=== PATIENT | male | born 2000 | race Two or more races ===

== ENCOUNTER 2023-10-14 21:31 | Emergency (ER) | payer OTHER ==
[2023-10-14 21:39] VITALS: BP 125/82; PULSE 91; RESP 18; TEMP 97.9; BMI 27.3
[2023-10-14 22:50] LABS: BASO % 0.6 % (0-2.0); EOS % 2.6 % (0-4.5); HEMATOCRIT 47.5 % (35.4-49); HEMOGLOBIN 15.9 GM/dL (11.7-16.9); LYMPH % 32.7 % (8-40); MCH 31.7 pg (25.7-33.7); MCHC 33.4 g/dl (32.0-35.9); MEAN CELL VOLUME 94.8 fl (80-96); MEAN PLT VOLUME 7.5 fl (7.5-11.1); MONO % 8.3 % (3.8-10.2); NEUT % 55.8 % (42.8-82.8); PLATELET COUNT 264 10^3/uL (134-434); RBC 5.01 M/mm3 (4.00-5.60); RDW 13.1 % (11.9-15.9); WHITE BLOOD COUNT 8.7 K/mm3 (4.0-10.0)
[2023-10-14 23:09] LABS: CHLORIDE 105 mmol/L (98-107); POTASSIUM 4.1 mmol/L (3.5-5.1); SODIUM 138 mmol/L (136-145)
[2023-10-14 23:12] LABS: CALCIUM 9.7 mg/dL (8.5-10.1)
[2023-10-14 23:13] LABS: ANION GAP 5 mmol/L (4-13); CO2 28 mmol/L (21-32); GLUCOSE,RANDOM 101 mg/dL (74-106)
[2023-10-14 23:16] LABS: CREATININE 1.3 mg/dL (0.55-1.3); SGOT/AST 29 U/L (15-37); SGPT/ALT 42 U/L (13-61)
[2023-10-14 23:17] LABS: BILIRUBIN,TOTAL 0.5 mg/dL (0.2-1); TOT PROT 7.6 g/dl (6.4-8.2)
[2023-10-14 23:18] LABS: ALK PHOS 44 U/L (45-117)
[2023-10-14 23:21] LABS: COCAINE, UR NEGATIVE (NEGATIVE); METHADONE, UR NEGATIVE (NEGATIVE); OPIATES, URI NEGATIVE (NEGATIVE); PHENCYCLIDINE,URINE NEGATIVE (NEGATIVE); URINE AMPHETAMINES NEGATIVE (NEGATIVE); URINE BARBITURATES NEGATIVE (NEGATIVE); URINE BENZODIAZEPINES NEGATIVE (NEGATIVE)
[2023-10-14 23:59] LABS: PH,URINE 5.5 (5.0-8.0); URINE APPEARANCE CLEAR; URINE BILIRUBIN NEGATIVE (NEGATIVE); URINE COLOR YELLOW; URINE GLUCOSE (UA) NEGATIVE (NEGATIVE); URINE KETONE NEGATIVE (NEGATIVE); URINE LEUK ESTERASE NEGATIVE (NEGATIVE); URINE NITRITE NEGATIVE (NEGATIVE); URINE PROTEIN NEGATIVE (NEGATIVE); URINE UROBILINOGEN 0.2 mg/dL (0.2-1.0)
[2023-10-15] MEDS ORDERED: MECLIZINE HCL 25 MG TABLET (FP) ONE ×2 (00:16→00:19)
[2023-10-15] MEDS: MECLIZINE HCL 25 MG TABLET (FP) PO ONE ×2 (00:24→00:27)
[2023-10-15 00:34] LABS: PHOSPHOROUS 4.2 mg/dL (2.5-4.9)
== END 2023-10-15 01:08 | disposition home or self-care (01) ==
LOC: JER 21:31
DX: R42 Dizziness and giddiness (principal); R51.9 Headache, unspecified; R20.0 Anesthesia of skin; R20.2 Paresthesia of skin; Z20.822 Contact with and (suspected) exposure to COVID-19
CPT/HCPCS: 0241U-QW; 36415; 70450-TC; 80053; 80307; 81003; 82010; 82962; 83735; 84100; 84484; 85025; 87086; 93005; 93010; 99285-25

== ENCOUNTER 2023-10-27 03:13 | Emergency (ER) | payer SELFPAY ==
[2023-10-27 03:18] VITALS: BP 126/88; PULSE 75; RESP 20; TEMP 97.8; BMI 27.3
[2023-10-27] MEDS ORDERED: AMOX TR/POT CLAV 875MG/125MG TABLETS (FP) ONE (04:02)
[2023-10-27] MEDS: AMOX TR/POT CLAV 875MG/125MG TABLETS (FP) PO ONE (04:05)
== END 2023-10-27 04:14 | disposition home or self-care (01) ==
LOC: JER 03:13
DX: J32.9 Chronic sinusitis, unspecified (principal); R42 Dizziness and giddiness; R51.9 Headache, unspecified
CPT/HCPCS: 99283-25

== ENCOUNTER 2023-11-30 19:24 | Emergency (ER) | payer SELFPAY ==
[2023-11-30 19:32] VITALS: BP 120/81; PULSE 85; RESP 18; TEMP 98.3; BMI 29.7
[2023-11-30] MEDS ORDERED: METOCLOPRAMIDE HCL INJECTION 10 MG/2 ML VIAL ONE (20:20)
[2023-11-30] MEDS ORDERED: KETOROLAC TROMETHAMINE 30 MG/1 ML VIAL ONE (20:20)
[2023-11-30] MEDS: KETOROLAC TROMETHAMINE 30 MG/1 ML VIAL IVPUSH ONE (20:25)
[2023-11-30] MEDS: SODIUM CHLORIDE 0.9% 500 ML INFUS.BAG IV ONE (20:25)
[2023-11-30] MEDS: METOCLOPRAMIDE HCL INJECTION 10 MG/2 ML VIAL IVPUSH ONE (20:25)
[2023-11-30 20:35] LABS: PH,URINE 5.5 (5.0-8.0); URINE APPEARANCE Clear; URINE BILIRUBIN Negative (NEGATIVE); URINE COLOR Yellow; URINE GLUCOSE (UA) Negative (NEGATIVE); URINE KETONE Negative (NEGATIVE); URINE LEUK ESTERASE Negative (NEGATIVE); URINE NITRITE Negative (NEGATIVE); URINE PROTEIN Negative (NEGATIVE); URINE UROBILINOGEN 0.2 mg/dL (0.2-1.0)
[2023-11-30 20:37] LABS: BASO % 0.6 % (0-2.0); EOS % 1.2 % (0-4.5); HEMATOCRIT 46.9 % (35.4-49); LYMPH % 36.3 % (8-40); MCH 32.1 pg (25.7-33.7); MCHC 34.1 g/dl (32.0-35.9); MEAN CELL VOLUME 94.1 fl (80-96); MEAN PLT VOLUME 7.7 fl (7.5-11.1); MONO % 8.4 % (3.8-10.2); NEUT % 53.5 % (42.8-82.8); PLATELET COUNT 262 10^3/uL (134-434); RBC 4.99 M/mm3 (4.00-5.60); RDW 13.5 % (11.9-15.9); WHITE BLOOD COUNT 7.8 K/mm3 (4.0-10.0)
[2023-11-30 20:54] LABS: POTASSIUM 4.4 mmol/L (3.5-5.1)
[2023-11-30 20:55] LABS: ALBUMIN 4.3 g/dl (3.4-5.0); CALCIUM 9.5 mg/dL (8.5-10.1)
[2023-11-30 20:56] LABS: BLOOD UREA NITROGEN 23.1 mg/dL (7-18)
[2023-11-30 20:59] LABS: CREATININE 1.4 mg/dL (0.55-1.3)
[2023-11-30 21:01] LABS: BILIRUBIN,TOTAL 0.4 mg/dL (0.2-1)
== END 2023-11-30 22:07 | disposition home or self-care (01) ==
LOC: JERFT 19:24
PROC: 3E0333Z Introduction of Anti-inflammatory into Peripheral Vein, Percutaneous Approach (ICD-10-PCS; principal; 2023-11-30)
PROC: 3E033GC Introduction of Other Therapeutic Substance into Peripheral Vein, Percutaneous Approach (ICD-10-PCS; 2023-11-30)
DX: G44.209 Tension-type headache, unspecified, not intractable (principal)
CPT/HCPCS: 36415; 70450-TC; 80053; 81003; 85025; 87086; 99284-25